=== PATIENT | female | born 1960 | race Caucasian/White ===

== ENCOUNTER 2017-06-19 07:19 | Day surgery (SDC) | payer OTHER ==
[2017-06-14 12:04] VITALS: BMI 21.5
[2017-06-19] MEDS ORDERED: LIDOCAINE HCL/PF 2% SDV 5ML VIAL ONE (07:24)
[2017-06-19] MEDS ORDERED: PROPOFOL 20 ML ONE ×3 (07:24→08:49)
[2017-06-19 07:33] VITALS: TEMP 97.6
[2017-06-19 09:09] VITALS: BP 116/63; PULSE 68
--- NOTE | 2017-06-21 12:34 | PATH ---
Surgical Pathology Report Patient Name: ANGELA JEFFRIES [facility]. Rec. #: [id number] /Age/Gender: 1960 (Age: 57) / F Account: [id number] Location: [facility]-ENDOSCOPY Taken: 06/19/2017 Received: 06/19/2017 Reported: 06/21/2017 Physicians: Erik Mckeon M.D. Specimen(s) Received A: BX DUODENUM B: BX ANTRUM C: GASTRIC POLYP Clinical History GERD, rule out colon cancer Postoperative diagnosis: Rule out celiac disease, gastritis, gastric polyp Final Diagnosis A. DUODENUM, BIOPSY: DUODENAL MUCOSA WITH NO PATHOLOGIC CHANGES. NO HISTOLOGIC EVIDENCE OF GLUTEN SENSITIVE ENTEROPATHY (CELIAC SPRUE) IDENTIFIED. B. STOMACH, ANTRUM, BIOPSY: GASTRIC ANTRAL MUCOSA WITH NO PATHOLOGIC CHANGES. IMMUNOSTAIN FOR H. PYLORI IS NEGATIVE. C. STOMACH, POLYP, BIOPSY: FUNDIC GLAND POLYP. IMMUNOSTAIN FOR H. PYLORI IS NEGATIVE. Electronically Signed Xu Branham M.D. Gross Description A. Received in formalin, labeled "duodenum" is a ruiz, irregular portion of soft tissue measuring 0.1 cm. in greatest dimension. The specimen is submitted in toto in one cassette. B. Received in formalin, labeled "antrum" are 2 ruiz, irregular portions of soft tissue averaging 0.3 cm. in greatest dimension. The specimens are submitted in toto in one cassette. C. Received in formalin, labeled "gastric polyp" are 2 ruiz, irregular portions of soft tissue measuring 0.2 and 0.4 cm. in greatest dimension. The specimens are submitted in toto in one cassette. /06/20/2017 saudi06/20/2017
== END 2017-06-19 09:12 | disposition home or self-care (01) ==
LOC: FASU-ENDO 07:19
PROVIDERS: ATTEND Internal Medicine Gastroenterology
PROC: 0DB68ZX Excision of Stomach, Via Natural or Artificial Opening Endoscopic, Diagnostic (ICD-10-PCS; 2017-06-19)
PROC: 0DJD8ZZ Inspection of Lower Intestinal Tract, Via Natural or Artificial Opening Endoscopic (ICD-10-PCS; principal; 2017-06-19 08:13)
PROC: 0DB98ZX Excision of Duodenum, Via Natural or Artificial Opening Endoscopic, Diagnostic (ICD-10-PCS; 2017-06-19 08:13)
DX: Z12.11 Encounter for screening for malignant neoplasm of colon (principal); K64.8 Other hemorrhoids; R12 Heartburn; K31.7 Polyp of stomach and duodenum
CPT/HCPCS: 88305-TC; 88342-TC